=== PATIENT | male | born 1995 | race Two or more races ===

== ENCOUNTER 2019-02-01 10:37 | Emergency (ER) | payer OTHER ==
[2019-02-01] MEDS ORDERED: Acetaminophen/HYDROcodone 325-5 MG Tab PO ONE ×2 (11:04→17:05)
[2019-02-01] MEDS ORDERED: Lidocaine 1% 10 ML MDV INJECT ONE (11:09)
--- NOTE | 2019-02-01 11:46 | EDM.PDOC ---
ED HPI GENERAL MEDICAL PROBLEM - General Chief Complaint: Upper Extremity Injury/Pain Stated Complaint: CRUSHED RT THUMB Time Seen by Provider: 02/01/19 10:49 Source of Information: Reports: Patient History Limitations: Reports: No Limitations - History of Present Illness INITIAL COMMENTS - FREE TEXT/NARRATIVE: The patient presents with a crush injury to his right thumb. He was working at a work over [employer] and a very heavy piece of equipment came down on his right thumb. He has a large laceration. He is right handed and his tetanus is up to date. He has no other medical problems. Onset: Sudden Duration: Hour(s): Location: Reports: Upper Extremity, Right (thumb) Quality: Reports: Sharp Severity: Severe Improves with: Reports: None Worsens with: Reports: None Associated Symptoms: Reports: No Other Symptoms Right Finger-Thumb Pain Score (Numeric/FACES): 10 - Related Data Allergies Allergy/AdvReac Type Severity Reaction Status Date / Time No Known Allergies Allergy Verified 02/01/19 10:51 Home Meds: Home Meds Cephalexin [Keflex] 500 mg PO Q6HR #28 capsule 02/01/19 [Rx] Past Medical History - Past Health History Medical/Surgical History: Denies Medical/Surgical History Social & Family History - Tobacco Use Smoking Status *Q: Current Every Day Smoker Years of Tobacco use: 2 Packs/Tins Daily: 1 - Caffeine Use Caffeine Use: Reports: Coffee - Recreational Drug Use Recreational Drug Use: No Review of Systems - Review of Systems Review Of Systems: See Below Constitutional: Reports: No Symptoms Eyes: Reports: No Symptoms Ears: Reports: No Symptoms Nose: Reports: No Symptoms Mouth/Throat: Reports: No Symptoms Respiratory: Reports: No Symptoms Cardiovascular: Reports: No Symptoms GI/Abdominal: Reports: No Symptoms Genitourinary: Reports: No Symptoms Musculoskeletal: Reports: Other (Right thumb pain and laceration) ED EXAM, GENERAL - Physical Exam Exam: See Below Exam Limited By: No Limitations General Appearance: Alert, No Apparent Distress Ears: Normal External Exam Nose: Normal Inspection Head: Atraumatic, Normocephalic Neck: Normal Inspection Respiratory/Chest: No Respiratory Distress Extremities: Other (Laceration to the base of the thum along the side of the thumb. He still can feel distally.) ED TRAUMA EXTREMITY PROCEDURES - Laceration/Wound Repair Right Digit - 1st (Thumb) Lac/Wound Length In cm: 2.5 Appearance: Subcutaneous, Irregular, Clean Distal NVT: Neuro & V[facility] Intact Anesthetic Type: Digital Local Anesthesia - Lidocaine (Xylocaine): 1% Plain Local Anesthetic Volume: 5cc Skin Prep: Providone-Iodine (Betadine) Exploration/Debridement/Repair: Wound Explored, In a Bloodless Field, Explored to Base Closed With: Sutures Suture Size: 4-0 # of Sutures: 6 Suture Type: Nylon, Interrupted, Simple Tetanus Status Addressed: Yes Complications: No - Splinting Right Thumb Splint Site: Right thumb Pre-Procedure NV Status: Normal Post-Procedure NV Status: Normal Splint Material: Fiberglass Splint Design: Thumb Spica Applied & Form Fitted By: Provider Provider Post-Splint Application NV Check: NV Status Normal, Good Position Complications: No Course - Vital Signs Last Recorded V/S: Last Vital Signs Temp 97.1 F 02/01/19 10:49 Pulse 78 02/01/19 10:49 Resp 16 02/01/19 10:49 BP 136/77 02/01/19 10:49 Pulse Ox 100 02/01/19 10:49 - Orders/Labs/Meds Orders: Active Orders 24 hr Category Date Time Status Fingers Thumb Rt F5 [CR] Stat Exams 02/01/19 11:04 Taken Meds: Medications Discontinued Medications Generic Name Dose Route Start Last Admin Trade Name Deisi PRN Reason Stop Dose Admin Hydrocodone Bitart/Acetaminophen 2 tab 02/01/19 11:04 02/01/19 11:10 Wilson 325-5 Mg PO 02/01/19 11:05 2 tab ONETIME ONE Administration Ceftriaxone Sodium 1 gm/ 0 gm 02/01/19 12:27 Lidocaine HCl 2.1 ml IM 02/01/19 12:28 ONETIME ONE Lidocaine HCl 10 ml 02/01/19 11:09 02/01/19 11:35 Xylocaine 1% INJECT 02/01/19 11:10 10 ml ONETIME ONE Administration - Re-Assessments/Exams Free Text/Narrative Re-Assessment/Exam: 02/01/19 11:44 I ordered an x-ray and he has a distal phalynx fracture. I called Dr Sierra and he wanted me to close the thumb and splint him and I will have him follow up with one of his hand surgeons. 02/01/19 12:55 I gave him a shot of rocephin and I will get him on some keflex and [facility] will call him with a date and time to come in. Departure - Departure Time of Disposition: 13:00 Disposition: Home, Self-Care 01 Condition: Good Clinical Impression: Crushing injury of right thumb Qualifiers: Encounter type: initial encounter Qualified Code(s): S67.01XA - Crushing injury of right thumb, initial encounter Open fracture of right thumb Qualifiers: Encounter type: initial encounter Phalanx: distal Fracture alignment: displaced Qualified Code(s): S62.521B - Displaced fracture of distal phalanx of right thumb, initial encounter for open fracture - Discharge Information *PRESCRIPTION DRUG MONITORING PROGRAM REVIEWED*: No *COPY OF PRESCRIPTION DRUG MONITORING REPORT IN PATIENT JAQUELIN: No Prescriptions: Cephalexin [Keflex] 500 mg PO Q6HR #28 capsule Referrals: PCP,None [Primary Care Provider] - Declan Eden MD [Ordering Only Provider] - 1 Week Forms: ED Department Discharge Additional Instructions: Clean the wound with warm soapy water 2 times per day and apply antibiotic ointment after. [facility] will call you today to set up a date and time to come in. Take tylenol or motrin for pain. Please return if you are worse. Take the keflex every 6 hours. - My Orders Last 24 Hours: My Active Orders 02/01/19 11:04 Fingers Thumb Rt F5 [CR] Stat - Assessment/Plan Last 24 Hours: My Active Orders 02/01/19 11:04 Fingers Thumb Rt F5 [CR] Stat
[2019-02-01] MEDS ORDERED: cefTRIAXone 1 GM, Lidocaine 1% 2.1 ML IM ONE ×2 (12:27)
--- NOTE | 2019-02-01 14:54 | CR ---
Right thumb: Four views of the right thumb were obtained. Comparison: No previous study. Soft tissue injury is seen. Fracture is noted within the distal phalanx of the thumb. No proximal bony abnormality is seen. Impression: 1. Soft tissue injury and bony fracture as noted above. Diagnostic code #3
== END 2019-02-01 13:25 | disposition home or self-care (01) ==
LOC: JD.ED 10:37
DX: S67.01XA Crushing injury of right thumb, initial encounter (principal); S62.521A Displaced fracture of distal phalanx of right thumb, initial encounter for closed fracture; S61.011A Laceration without foreign body of right thumb without damage to nail, initial encounter; F17.210 Nicotine dependence, cigarettes, uncomplicated; W20.8XXA Other cause of strike by thrown, projected or falling object, initial encounter; Y92.89 Other specified places as the place of occurrence of the external cause; Y99.0 Civilian activity done for income or pay
CPT/HCPCS: 12001; 29125; 73140; 96372; 99283; A9270; J0696; J2001; 29130